=== PATIENT | male | born 1965 | race Caucasian/White ===

== ENCOUNTER → 2017-11-19 | Outpatient (CLI) | payer OTHER ==
[~2017-11-19] MED LIST: ARMTHY90PT PO; ATR10 PO; AZIT-18 PO; CEP500 PO; CYC10 PO; DEXT10CA10 PO; IBUP600T22 PO; KET10 PO; LEVO150T72 PO; PAR20 PO; PER PO; THYR120T10 PO; VENL75CA58 PO
--- NOTE | 2017-11-19 17:37 | RADIOLOGY IMAGING REPORT ---
FACILITY: [facility] PATIENT NAME: Kulwant Higgins : 1965 MR: [id number] V: [id number] EXAM DATE: ORDERING PHYSICIAN: ZAK DOWNEY TECHNOLOGIST: Location: [facility] - [place] Patient: Kulwant Higgins : 1965 Visit/Account:[id number] Date of Sevice: 11/19/2017 FOOT 3 VIEW LEFT Indication: Comparison: None Available Findings: 3 views of the left foot were obtained. No evidence of fracture, dislocation, or acute osseous abnormality of the left foot. Calcified tendinous insertion of the Achilles is noted No evidence of radiopaque foreign body. IMPRESSION: 1.No acute osseous abnormality of the left foot Report Dictated By: Kirill Post at 11/19/2017 5:33 PM Report E-Signed By: Kirill Post at 11/19/2017 5:33 PM WSN:[id number]
== END ==
LOC: RAD 16:28
PROVIDERS: ATTEND Family Medicine
DX: M65.271 Calcific tendinitis, right ankle and foot (principal)

== ENCOUNTER → 2018-01-28 | Outpatient (CLI) | payer OTHER ==
--- NOTE | 2018-01-28 14:46 | RADIOLOGY IMAGING REPORT ---
FACILITY: [facility] PATIENT NAME: Kulwant Higgins : 1965 MR: [id number] V: [id number] EXAM DATE: ORDERING PHYSICIAN: ZAK DOWNEY TECHNOLOGIST: Location: [facility] - [place] Patient: Kulwant Higgins : 1965 Visit/Account:[id number] Date of Sevice: 01/28/2018 THYROID HISTORY: History of thyroid cysts. On thyroid medication COMPARISON: July 11, 2015 FINDINGS: SIZE: Normal. Right lobe: 4.4 x 1.4 x 1.8 cm Left lobe: 3 x 1.1 x 1.2 cm Isthmus: 1.5 mm PARENCHYMA: Mild heterogeneous NODULES: Right lobe: * There is a 3.3 mm cyst in the mid right lobe Left lobe: * None discrete. Isthmus: * None discrete. VASCULARITY: Within normal limits. ADDITIONAL FINDINGS: None. IMPRESSION: There is a 3.3 mm cyst in the mid right lobe minimally decreased in size REFERENCE: 2015 [place] [employer] Management Guidelines for Adult Patients with Thyroid Nodules and D ifferentiated Thyroid Cancer: The [place] [employer] Guidelines Task Force on Thyroid Nodul es and Differentiated Thyroid Cancer. SONOGRAPHIC PATTERNS: * Benign: Purely cystic nodules (no solid component); estimated risk of malignancy <1 percent; no bi opsy recommended. * Very Low Suspicion: Spongiform or partially cystic nodules without any of the sonographic features described in low, intermediate, or high suspicion patterns; estimated risk of malignancy <3 percent; consider FNA at > 2 cm (Observation without FNA is also a reasonable option). * Low Suspicion: Isoechoic or hyperechoic solid nodule, or partially cystic nodule with eccentric so lid areas, without microcalcification, irregular margin or ETE (extra-thyroidal extension), or taller than wide shape; estimated risk of malignancy 5-10 percent; recommend FNA at >1.5 cm. * Intermediate Suspicion: Hypoechoic solid nodule with smooth margins without microcalcifications, E TE (extra-thyroidal extension), or taller than wide shape; estimated risk of malignancy 10-20 percent ; recommend FNA at > 1 cm. * High Suspicion: Solid hypoechoic nodule or solid hypoechoic component of a partially cystic nodule with one or more of the following features: irregular margins (infiltrative, microlobulated), microc alcifications, taller than wide shape, rim calcifications with small extrusive soft tissue component, evidence of ETE (extra-thyroidal extension); estimated risk of malignancy >70-90 percent; recommend FNA at > 1 cm. NOTES: * Although a sonographically suspicious subcentimeter thyroid nodule without evidence of extrathyroi armida extension or sonographically suspicious lymph nodes may be observed with close sonographic follow -up rather than pursuing immediate FNA, patient age and preference may modify decision-making. A > 50% interval increase in nodule volume and/or development of new suspicious sonographic features are felt to be a valid reasons for potential re-aspiration of a nodule previously shown to have benig n FNA cytology. Report Dictated By: Lisa Holm MD at 01/28/2018 2:41 PM Report E-Signed By: Lisa Holm MD at 01/28/2018 2:43 PM WSN:[id number]
== END ==
LOC: US 01-26 00:57
PROVIDERS: ATTEND Family Medicine
DX: E04.9 Nontoxic goiter, unspecified (principal)
CPT/HCPCS: 76536